=== PATIENT | male | born 1975 | race Two or more races ===

== ENCOUNTER 2021-08-03 13:31 | Emergency (ER) | payer SELFPAY ==
[~2021-08-03] VITALS: Ht 175.3 cm; Wt 81.8 kg
[2021-08-03 14:43] LABS: HEMATOCRIT 52.5 % (39.0-50.0); HEMOGLOBIN 17.7 g/dl (14.0-18.0); IMMATURE GRANULOCYTES 0.2 % (0.0-5.0); MEAN CELL VOLUME 82.8 fL CALC (80.0-100.0); MEAN CORPUSCULAR HGB 27.9 pG CALC (26.0-32.0); MEAN CORPUSCULAR HGB CONC 33.7 g/dL CAL (32.0-36.0); NEUT# 3.31 thou/uL (1.82-7.42); RED BLOOD COUNT 6.34 mill/uL (4.70-6.10); RED CELL DISTRI WIDTH 12.7 % (11.5-15.5)
[2021-08-03] MEDS ORDERED: ADVAIR DISK1 INH (15:45)
[2021-08-03] MEDS ORDERED: VENTOLIN HFA IN (15:45)
[2021-08-03] MEDS ORDERED: ADVAIR DISK1 IN (15:45)
[2021-08-03] MEDS ORDERED: MEDDOSEPAK PO (15:45)
[2021-08-03 15:50] VITALS: BP 149/84
== END 2021-08-03 16:37 | disposition home or self-care (01) | DRG 203 ==
LOC: ED 13:31
DX: J45.901 Unspecified asthma with (acute) exacerbation (principal); Z20.822 Contact with and (suspected) exposure to COVID-19

== ENCOUNTER 2022-01-25 08:11 | Emergency (ER) | payer SELFPAY ==
[~2022-01-25] VITALS: Ht 175.3 cm; Wt 70.0 kg
[~2022-01-25 08:11] MED LIST: ADVAIR DISK1 IN; ADVAIR DISK1 INH; MEDDOSEPAK PO; VENTOLIN HFA IN
[2022-01-25 08:17] VITALS: BP 146/86
[2022-01-25 08:30] VITALS: BP 132/86
[2022-01-25] MEDS ORDERED: ADVAIR DISK1 INH (08:42)
[2022-01-25 08:52] VITALS: BP 132/86
== END 2022-01-25 08:54 | disposition home or self-care (01) | DRG 951 ==
LOC: ED 08:11
DX: Z76.0 Encounter for issue of repeat prescription (principal); J45.909 Unspecified asthma, uncomplicated